=== PATIENT | female | born 1980 | race Caucasian/White ===

== ENCOUNTER 2019-04-17 18:06 | Emergency (ER) | payer BC ==
[~2019-04-17] VITALS: Ht 167.6 cm; Wt 86.4 kg
[~2019-04-17 18:06] MED LIST: MOTRIN 600600 MG/TAB PO; PERCOCET 325 MG1 TA2 PO; PRENATAL VITAMI1 TAB PO; PRENATAL1 TA1 PO; PROZAC 10MG10 MG PO
[2019-04-17 18:17] VITALS: BP 136/60; TEMP 97.8
[2019-04-17 20:08] VITALS: PULSE 82
== END 2019-04-17 20:12 | disposition home or self-care (01) ==
LOC: COL.ER 18:06
DX: S93.402A Sprain of unspecified ligament of left ankle, initial encounter (principal); X50.1XXA Overexertion from prolonged static or awkward postures, initial encounter; Y92.009 Unspecified place in unspecified non-institutional (private) residence as the place of occurrence of the external cause